=== PATIENT | male | born 1950 | race Caucasian/White ===

== ENCOUNTER 2016-09-11 08:11 | Emergency (ER) | payer OTHER ==
[2016-04-05 13:47] VITALS: Ht 175.3 cm; Wt 108.9 kg
[~2016-09-11] VITALS: Ht 175.3 cm; Wt 108.9 kg
[~2016-09-11 08:11] MED LIST: FURO20TA4 PO; LOSA25TA3 PO; NOR10 PO
[2016-09-11 08:24] VITALS: BP 157/94; PULSE 89; RESP 16; TEMP 98; O2SAT 96
--- NOTE | 2016-09-11 08:29 | NUR ---
Patient to ER bed 4 to gown for evaluation. Side rails up. Report given to Merari TUBBS.
[2016-09-11] MEDS ORDERED: AMOX-426 PO (08:31)
[2016-09-11] MEDS ORDERED: IBUP-1480 PO (08:31)
--- NOTE | 2016-09-11 08:39 | NUR ---
DR VALDEZ AT BEDSIDE FOR EVALUATION
[2016-09-11 09:45] VITALS: BP 128/81; PULSE 89; RESP 19
--- NOTE | 2016-09-11 09:45 | NUR ---
Patient given written and verbal discharge instructions and verbalizes understanding. ER MD discussed with patient the results and treatment provided. Given copies of tests performed in ER. Patient in stable condition. ID arm band removed Rx of SHELL ROACH given. Patient educated on pain management and to follow up with PMD. Pain Scale 0/10. Opportunity for questions provided and answered.
[2016-09-11 09:55] VITALS: O2SAT 96
== END 2016-09-11 09:45 | disposition home or self-care (01) ==
LOC: SED 08:11
DX: J01.90 Acute sinusitis, unspecified (principal); I10 Essential (primary) hypertension; E66.9 Obesity, unspecified; Z68.35 Body mass index [BMI] 35.0-35.9, adult
CPT/HCPCS: 99283